=== PATIENT | male | born 1980 | race Hispanic/Latino ===

== ENCOUNTER 2022-04-30 18:56 | Emergency (ER) | payer BC ==
[2022-04-30 20:30] LABS: Absolute Lymphocytes (CBC) 1.9 K/uL (0.7-4.9); Hematocrit 47.6 % (39.6-49.0); Lymphocytes % 21.2 % (15.3-44.8); MCV 97.5 fL (80-100); MPV 8.9 fL (7.6-11.3); RBC Red Blood Cell Count 4.89 M/uL (4.33-5.43)
[2022-04-30 20:33] LABS: Protime INR 1.07
--- NOTE | 2022-04-30 20:44 | RAD REPORT ---
EXAM DESCRIPTION: RAD - Chest Single View - 04/30/2022 8:38 pm CLINICAL HISTORY: PALPITATIONS COMPARISON: No comparisons FINDINGS: Lines: None. Lungs: No evidence of edema or pneumonia. Pleural: No significant pleural effusions or pneumothorax. Cardiac: The heart size is within normal limits. Mediastinum: Within normal limits. Bones: No acute fractures. Other: None IMPRESSION: No acute cardiopulmonary disease.
[2022-04-30 20:49] LABS: Magnesium 2.4 mg/dL (1.6-2.4); Potassium 3.7 mmol/L (3.5-5.1); Troponin High Sensitivity 8.3 pg/mL (<58.9)
--- NOTE | 2022-04-30 21:06 | RAD REPORT ---
EXAM DESCRIPTION: CT - Head Brain Wo Cont - 04/30/2022 8:52 pm CLINICAL HISTORY: left side headache, htn COMPARISON: No comparisons TECHNIQUE: All CT scans are performed using dose optimization technique as appropriate and may inclu de automated exposure control or mA/KV adjustment according to patient size. FINDINGS: No intracranial hemorrhage, hydrocephalus or extra-axial fluid collection.No areas of brai n edema or evidence of midline shift. The paranasal sinuses and mastoids are clear. The calvarium is intact. IMPRESSION: No acute intracranial abnormality.
--- NOTE | 2022-04-30 22:13 | ER ---
Nurse's Notes [facility] Name: Kenneth Stack Age: 41 yrs Sex: Male : 1980 Arrival Date: 04/30/2022 Time: 18:57 Bed 12 Private MD: Diagnosis: Elevated blood-pressure reading, without diagnosis of hypertension;Headache Presentation: 04/30 19:35 Chief complaint: Patient states: "I was having a high heart rate around 120 and my tw5 blood pressure was high. I took some of my sister meds that she had." Patient showed a picture Nebivolol Tablets 10 mg Olmesartan medoxomil and hydrochlorothiazide at 0530. Coronavirus screen: Vaccine status: Patient reports receiving the 2nd dose of the covid vaccine. Moderna. Ebola Screen: Patient negative for fever greater than or equal to 101.5 degrees Fahrenheit, and additional compatible Ebola Virus Disease symptoms Patient denies exposure to infectious person. Patient denies travel to an Ebola-affected area in the 21 days before illness onset. Initial Sepsis Screen: Does the patient meet any 2 criteria? No. Patient's initial sepsis screen is negative. Does the patient have a suspected source of infection? No. Patient's initial sepsis screen is negative. Risk Assessment: Do you want to hurt yourself or someone else? Patient reports no desire to harm self or others. Onset of symptoms was April 30, 2022 at 05:30. 19:35 Method Of Arrival: Ambulatory tw5 19:35 Acuity: ZANDER 3 tw5 Triage Assessment: 19:38 Headache History: Denies prior headaches. General: Appears in no apparent distress. tw5 Behavior is calm, cooperative, appropriate for age. Pain: Complains of pain in "Headache" Pain currently is 3 out of 10 on a pain scale. Pain: Pain began 2 hours ago. Also complains of. Neuro: Level of Consciousness is awake, alert, obeys commands, Oriented to person, place, time, situation. Historical: - Allergies: 19:38 PCN; tw5 - PMHx: 19:38 ADD; tw5 - PSHx: 19:38 None; tw5 - Immunization history:: Flu vaccine is not up to date. - Social history:: Smoking status: Patient denies any tobacco usage or history of. Screenin:01 [facility] ED Fall Risk Assessment (Adult) History of falling in the last 3 months, eh3 including since admission No falls in past 3 months (0 pts) Confusion or Disorientation No (0 pts) Intoxicated or Sedated No (0 pts) Impaired Gait No (0 pts) Mobility Assist Device Used No (0 pt) Altered Elimination No (0 pt) Score/Fall Risk Level 0 - 2 = Low Risk. Abuse screen: Denies threats or abuse. Denies injuries from another. Nutritional screening: No deficits noted. Tuberculosis screening: No symptoms or risk factors identified. Assessment: 19:58 General: Appears in no apparent distress. comfortable, Behavior is calm, cooperative, eh3 appropriate for age. Pain: Complains of pain in anterior aspect of left upper chest and left side of head. Neuro: Level of Consciousness is awake, alert, obeys commands, Oriented to person, place, time, situation. Cardiovascular: Capillary refill < 3 seconds Patient's skin is warm and dry. Rhythm is sinus rhythm. Respiratory: Airway is patent Respiratory effort is even, unlabored, Respiratory pattern is regular, symmetrical. GI: No signs and/or symptoms were reported involving the gastrointestinal system. : No signs and/or symptoms were reported regarding the genitourinary system. EENT: No signs and/or symptoms were reported regarding the EENT system. Derm: No signs and/or symptoms reported regarding the dermatologic system. Musculoskeletal: No signs and/or symptoms reported regarding the musculoskeletal system. Circulation, motion, and sensation intact. Range of motion: intact in all extremities. 21:00 Reassessment: Patient appears in no apparent distress at this time. Patient and/or eh3 family updated on plan of care and expected duration. Pain level reassessed. Patient is alert, oriented x 3, equal unlabored respirations, skin warm/dry/pink. 22:00 Reassessment: Patient appears in no apparent distress at this time. Patient and/or eh3 family updated on plan of care and expected duration. Pain level reassessed. Patient is alert, oriented x 3, equal unlabored respirations, skin warm/dry/pink. Vital Signs: 19:35 BP 140 / 97; Pulse 72; Resp 18; Temp 98.7; Pulse Ox 98% ; Weight 81.65 kg; Height 5 ft. tw5 7 in. (170.18 cm); Pain 4/10; 19:58 BP 159 / 99; Pulse 73; Resp 18; Pulse Ox 98% on R/A; eh3 21:00 BP 140 / 105; Pulse 65; Resp 14; Pulse Ox 98% on R/A; eh3 22:00 BP 132 / 96; Pulse 64; Resp 13; Pulse Ox 97% on R/A; eh3 19:35 Body Mass Index 28.19 (81.65 kg, 170.18 cm) tw5 ED Course: 18:57 Patient arrived in ED. rg4 19:38 Triage completed. tw5 19:38 Arm band placed on. tw5 19:42 Griselda Suarez, RN is Primary Nurse. eh3 19:43 Carl Chung PA is PHCP. cp 19:43 Valeria Webber MD is Attending Physician. cp 20:01 Patient has correct armband on for positive identification. Placed in gown. Bed in low eh3 position. Call light in reach. Side rails up X2. Adult w/ patient. Client placed on continuous cardiac and pulse oximetry monitoring. NIBP monitoring applied. Door closed. Noise minimized. Warm blanket given. 20:18 Inserted saline lock: 20 gauge in right antecubital area, using aseptic technique. ls5 Blood collected. 20:40 XRAY Chest (1 view) In Process Unspecified. EDMS 20:53 CT Head Brain wo Cont In Process Unspecified. EDMS 22:21 No provider procedures requiring assistance completed. IV discontinued, intact, eh3 bleeding controlled, No redness/swelling at site. Pressure dressing applied. Administered Medications: 20:04 Drug: Tylenol 1000 mg Route: PO; eh3 22:28 Follow up: Response: Pain is decreased eh3 Medication: 22:21 VIS not applicable for this client. eh3 Outcome: 22:12 Discharge ordered by . cp 22:27 Discharged to home ambulatory, with significant other. eh3 22:27 Condition: stable 22:27 Discharge instructions given to patient, Instructed on discharge instructions, follow up and referral plans. Demonstrated understanding of instructions, follow-up care. 22:27 Patient left the ED. eh3 Signatures: Dispatcher [employer] EDMS Carl Chung PA PA Mai Whitney rg4 Evy Pierre tw5 Griselda Suarez, JEFF RN eh3 Agusto Rand ls5
--- NOTE | 2022-04-30 22:13 | EDPHYS ---
Physician Documentation [facility] Name: Kenneth Stack Age: 41 yrs Sex: Male : 1980 Arrival Date: 04/30/2022 Time: 18:57 Bed 12 Private MD: ED Physician Valeria Webber HPI: 04/30 20:05 This 41 yrs old Male presents to ER via Ambulatory with complaints of High cp Blood Pressure, Headache. 20:05 The patient has elevated blood pressure and discovered this at home, with a home cp device. Onset: The symptoms/episode began/occurred today. Associated signs and symptoms: Pertinent positives: headache, elevated HR in the 120's, Pertinent negatives: chest pain, dizziness, vomiting, weakness. Severity of symptoms: At its worst the blood pressure was 160 mm Hg. Patient reports history of htn and was prescribed blood pressure medication by pcp. Stopped taking medication about 6 months ago. [place] headache today, heart racing in the 120's and checked blood pressure and measured systolic pressure in the 160's. Took sister's blood pressure medication prior to arrival. Unsure of name of blood pressure he was prescribed in the past. Historical: - Allergies: 19:38 PCN; tw5 - PMHx: 19:38 ADD; tw5 - PSHx: 19:38 None; tw5 - Immunization history:: Flu vaccine is not up to date. - Social history:: Smoking status: Patient denies any tobacco usage or history of. ROS: 20:10 Constitutional: Negative for body aches, chills, fever, poor PO intake. cp 20:10 Eyes: Negative for injury, pain, redness, and discharge. cp 20:10 ENT: Negative for drainage from ear(s), ear pain, sore throat, difficulty swallowing, difficulty handling secretions. 20:10 Cardiovascular: Positive for palpitations, Negative for chest pain, edema. 20:10 Respiratory: Negative for cough, shortness of breath, wheezing. 20:10 Abdomen/GI: Negative for abdominal pain, nausea, vomiting, and diarrhea. 20:10 Back: Negative for pain at rest, pain with movement. 20:10 Neuro: Positive for headache, Negative for altered mental status, loss of consciousness, syncope, weakness. 20:10 All other systems are negative. Exam: 20:07 ECG was reviewed by the Attending Physician. cp 20:15 Constitutional: The patient appears in no acute distress, alert, awake, comfortable, cp non-diaphoretic, non-toxic, well developed, well nourished. 20:15 Head/Face: Normocephalic, atraumatic. cp 20:15 Eyes: Periorbital structures: appear normal, Conjunctiva: normal, no exudate, no injection, Sclera: no appreciated abnormality, Lids and lashes: appear normal, bilaterally. 20:15 ENT: External ear(s): are unremarkable, Nose: is normal, Mouth: Lips: moist, Oral mucosa: moist, Posterior pharynx: Airway: no evidence of obstruction, patent. 20:15 Chest/axilla: Inspection: normal. 20:15 Cardiovascular: Rate: normal, Rhythm: regular, Edema: is not appreciated, JVD: is not appreciated. 20:15 Respiratory: the patient does not display signs of respiratory distress, Respirations: normal, no use of accessory muscles, no retractions, labored breathing, is not present, Breath sounds: are clear throughout, no decreased breath sounds, no stridor, no wheezing. 20:15 Abdomen/GI: Inspection: abdomen appears normal, Palpation: abdomen is soft and non-tender, in all quadrants. 20:15 Back: pain, is absent, ROM is normal. 20:15 Neuro: Orientation: to person, place \T\ time. Mentation: is normal, Cerebellar function: is grossly normal, Motor: moves all fours, strength is normal, Sensation: is normal. Vital Signs: 19:35 BP 140 / 97; Pulse 72; Resp 18; Temp 98.7; Pulse Ox 98% ; Weight 81.65 kg; Height 5 ft. tw5 7 in. (170.18 cm); Pain 4/10; 19:58 BP 159 / 99; Pulse 73; Resp 18; Pulse Ox 98% on R/A; eh3 21:00 BP 140 / 105; Pulse 65; Resp 14; Pulse Ox 98% on R/A; eh3 22:00 BP 132 / 96; Pulse 64; Resp 13; Pulse Ox 97% on R/A; eh3 19:35 Body Mass Index 28.19 (81.65 kg, 170.18 cm) tw5 MDM: 19:43 Patient medically screened. cp 21:00 Differential diagnosis: hypertensive crisis, Malignant HTN, CVA, intracerebral cp hemorrhage, cardiac arrythmia, dehydration, anxiety, electrolyte abnormality. 22:10 Data reviewed: vital signs, nurses notes, lab test result(s), EKG, radiologic studies, cp plain films. 22:10 Data interpreted: tyre fitter: rate is 66 beats/min, rhythm is regular, Pulse cp oximetry: on room air is 97 %. Interpretation: normal. Test interpretation: by ED physician or midlevel provider: ECG, plain radiologic studies. Counseling: I had a detailed discussion with the patient and/or guardian regarding: the historical points, exam findings, and any diagnostic results supporting the discharge/admit diagnosis, the presence of at least one elevated blood pressure reading (>120/80) during this emergency department visit, lab results, radiology results, the need for outpatient follow up, for definitive care, a family practitioner, to return to the emergency department if symptoms worsen or persist or if there are any questions or concerns that arise at home. Response to treatment: the patient's symptoms have markedly improved after treatment, and as a result, I will discharge patient. 04/30 20:00 Order name: Basic Metabolic Panel; Complete Time: 21:14 cp 04/30 21:14 Interpretation: Normal except: GFR 88. cp 04/30 20:00 Order name: CBC with Diff; Complete Time: 21:14 cp 04/30 20:00 Order name: D-Dimer; Complete Time: 21:14 cp 04/30 20:00 Order name: Magnesium; Complete Time: 21:14 cp 04/30 20:00 Order name: PT-INR; Complete Time: 21:14 cp 04/30 20:00 Order name: Troponin HS; Complete Time: 21:14 cp 04/30 20:00 Order name: XRAY Chest (1 view); Complete Time: 21:14 cp 04/30 20:00 Order name: EKG; Complete Time: 20: cp 04/30 20:00 Order name: Cardiac monitoring; Complete Time: 20: cp 04/30 20:00 Order name: EKG - Nurse/Tech; Complete Time: 20: cp 04/30 20:00 Order name: IV Saline Lock; Complete Time: 20:17 cp 04/30 20:00 Order name: Labs collected and sent; Complete Time: 20: cp 04/30 20:00 Order name: CT Head Brain wo Cont; Complete Time: 21:14 cp 04/30 20:00 Order name: O2 Per Protocol; Complete Time: 20:02 cp 04/30 20:00 Order name: O2 Sat Monitoring; Complete Time: 20:02 cp EC:07 Rate is 70 beats/min. Rhythm is regular. SD interval is normal. QRS interval is normal. cp QT interval is normal. T waves are Inverted in lead aVR. Interpreted by me. Reviewed by me. Administered Medications: 20:04 Drug: Tylenol 1000 mg Route: PO; eh3 22:28 Follow up: Response: Pain is decreased 3 Disposition Summary: 04/30/22 22:12 Discharge Ordered Location: Home cp Problem: new cp Symptoms: have improved cp Condition: Stable cp Diagnosis - Elevated blood-pressure reading, without diagnosis of hypertension cp - Headache cp Followup: cp - With: Private Physician - When: 2 - 3 days - Reason: Recheck today's complaints Discharge Instructions: - Discharge Summary Sheet cp - General Headache Without Cause cp - How to Take Your Blood Pressure, [id number] cp - Aspirin and Your Heart cp - Form - Blood Pressure Record Sheet cp Forms: - Medication Reconciliation Form cp - Thank You Letter cp - Antibiotic Education cp - Prescription Opioid Use cp Signatures: Dispatcher [employer] EDMS Carl Chung PA PA cp Wood, Tiffany 5 Griselda Suarez RN RN 3
[2022-04-30 23:16] VITALS: TEMP 98.7
[2022-04-30 23:33] VITALS: BP 132/96; O2SAT 97
--- NOTE | 2022-05-01 16:03 | EKG ---
Test Date: 2022-04-30 Test Time: 20:01:50 [employer]seam Trimming Machine Operator: CAMILO MEASUREMENT RESULTS: Intervals: Rate: 70 LA: 148 QRSD: 88 QT: 380 QTc: 410 [place]: P: 59 LA: 148 QRS: 50 T: 60 INTERPRETIVE STATEMENTS: Normal sinus rhythm Early repolarization Normal ECG No previous ECG available for comparison Electronically Signed On 05-01-22 16:01:30 AUTO PHONE INSTALLER by Arnoldo Faye
== END 2022-04-30 22:27 | disposition home or self-care (01) ==
LOC: ER 18:56
DX: R03.0 Elevated blood-pressure reading, without diagnosis of hypertension (principal); Z88.0 Allergy status to penicillin
CPT/HCPCS: 36415; 70450; 71045; 80048; 83735; 84484; 85025; 85379; 85610; 93005; 99284